=== PATIENT | male | born 1975 | race Caucasian/White ===

== ENCOUNTER 2017-10-18 20:55 | Emergency (ER) | payer BC ==
[~2017-10-18] VITALS: Ht 172.7 cm; Wt 77.3 kg
[2017-10-18 21:01] VITALS: BP 140/102
[2017-10-18] MEDS ORDERED: NO HOME MEDS (21:09)
[2017-10-18] MEDS ORDERED: SULF1TAB49 PO (21:41)
[2017-10-18] MEDS ORDERED: sulfamethoxazole/trimethoprim DS (800/160mg) tablet PO ONE (21:45)
== END 2017-10-18 21:59 | disposition home or self-care (01) ==
LOC: ER 20:56
DX: L02.416 Cutaneous abscess of left lower limb (principal)
CPT/HCPCS: 99283

== ENCOUNTER 2020-11-27 08:15 | Emergency (ER) | payer BC, OTHER ==
[~2020-11-27] VITALS: Ht 172.7 cm; Wt 78.7 kg
[~2020-11-27 08:15] MED LIST: NO HOME MEDS
[2020-11-27 08:36] VITALS: BP 159/114
== END 2020-11-27 09:59 | disposition home or self-care (01) ==
LOC: ER 08:15
DX: S06.0X0A Concussion without loss of consciousness, initial encounter (principal); S01.112A Laceration without foreign body of left eyelid and periocular area, initial encounter; W01.10XA Fall on same level from slipping, tripping and stumbling with subsequent striking against unspecified object, initial encounter; Z91.81 History of falling; Y93.89 Activity, other specified; Y92.89 Other specified places as the place of occurrence of the external cause; Y99.0 Civilian activity done for income or pay
CPT/HCPCS: 99284

== ENCOUNTER 2020-12-01 18:07 | Emergency (ER) | payer BC, OTHER ==
[~2020-12-01] VITALS: Ht 172.7 cm; Wt 75.0 kg
[2020-12-01 18:57] VITALS: BP 142/100
--- NOTE | 2020-12-01 21:20 | NUR ---
pt notified his test is positive
== END 2020-12-01 19:29 | disposition home or self-care (01) ==
LOC: ER 18:08
DX: R05 Cough (principal); Z20.822 Contact with and (suspected) exposure to COVID-19; R51.9 Headache, unspecified; R09.81 Nasal congestion; J02.9 Acute pharyngitis, unspecified; M79.10 Myalgia, unspecified site; R68.83 Chills (without fever)
CPT/HCPCS: 87635; 99283; C9803